=== PATIENT | female | born 1990 | race Caucasian/White ===

== ENCOUNTER 2017-01-19 17:03 | Emergency (ER) | payer MEDICAID ==
[2017-01-19 17:39] VITALS: BP 119/69
[2017-01-19 18:38] LABS: Basophils % (Auto) 0.3 % (0.0-1.8); Eosinophils % (Auto) 2.1 % (0.0-4.3); Hematocrit 37.2 % (30.3-42.9); Hemoglobin 12.3 gm/dl (10.1-14.3); Mean Corpuscular HGB Conc 33 % (30-34); Mean Corpuscular Hemoglobin 29 pg (28-32); Mean Corpuscular Volume 87 fl (79-97); Platelet Count 156 K/mm3 (140-440); Red Blood Count 4.27 M/mm3 (3.65-5.03); Red Cell Distribution Width 13.5 % (13.2-15.2); White Blood Count 7.7 K/mm3 (4.5-11.0)
[2017-01-19 19:01] LABS: Alanine Aminotransferase 21 units/L (7-56); Albumin 3.7 g/dL (3.9-5); Albumin/Globulin Ratio 1.5 %; Alkaline Phosphatase 68 units/L (35-129); Anion Gap 17 mmol/L; BUN/Creatinine Ratio 13; Blood Urea Nitrogen 4 mg/dL (7-17); Calcium 8.5 mg/dL (8.4-10.2); Carbon Dioxide 24 mmol/L (22-30); Chloride 103.8 mmol/L (98-107); Glucose 106 mg/dL (65-100); Lipase 24 units/L (13-60); Sodium 141 mmol/L (137-145); Total Protein 6.1 g/dL (6.3-8.2)
== END 2017-01-19 19:52 | disposition left against medical advice (07) ==
LOC: ED 17:03
DX: R10.10 Upper abdominal pain, unspecified (principal); Z53.21 Procedure and treatment not carried out due to patient leaving prior to being seen by health care provider
CPT/HCPCS: 36415; 80053; 83690; 84702; 85025

== ENCOUNTER 2017-07-31 19:13 | Outpatient (CLI) | payer OTHER ==
[2017-07-31 19:39] VITALS: BP 121/61
--- NOTE | 2017-07-31 22:21 | Ultrasound Report ---
FINAL REPORT PROCEDURE: US OB LIMITED TECHNIQUE: Real-time limited sonographic examination was performed for evaluation of amniotic fluid volume for each fetus with image documentation (1 or more fetuses). CPT 65975 HISTORY: NRNST COMPARISON: No prior studies are available for comparison. FINDINGS: FETUS IUP: Single living intrauterine . Amniotic fluid volume: Amniotic fluid index measures 10.7 centimeters Heart rate and rhythm: 157 BPM, Regular . IMPRESSION: Amniotic fluid index measures 10.7 centimeters
--- NOTE | 2017-07-31 22:24 | Ultrasound Report ---
FINAL REPORT PROCEDURE: US OB BPP WO NON-STRESS TECHNIQUE: Sonographic evaluation for breathing, movement, tone, and amniotic fluid volume was performed. CPT 01970 HISTORY: NRNST COMPARISON: No prior studies are available for comparison. FINDINGS: Amniotic fluid volume: Normal-score 2. At least one vertical pocket > 2 cm or more in vertical axis. breathing: Normal-score 2. movement: Normal-score 2. tone: Normal-score 2. Score: 8 of 8. IMPRESSION: Normal biophysical profile.
== END 2017-07-31 21:32 | disposition home or self-care (01) ==
LOC: TRG 19:13
PROVIDERS: ATTEND Obstetrics & Gynecology
DX: O47.1 False labor at or after 37 completed weeks of gestation (principal); Z3A.38 38 weeks gestation of pregnancy
CPT/HCPCS: 59025; 76815; 76819